=== PATIENT | male | born 1990 | race Caucasian/White ===

== ENCOUNTER 2021-06-04 12:24 | Emergency (ER) | payer MEDICAID, OTHER ==
[~2021-06-04] VITALS: Ht 190.5 cm; Wt 84.8 kg
[2021-06-04 14:21] VITALS: BP 117/81
[2021-06-04] MEDS ORDERED: LIDOCAINE 1% HCL (LOCAL ANESTH.) INJ 20ML MDV IJ ONE (15:15)
[2021-06-04] MEDS ORDERED: TETANUS-DIPTH-ACEL PERTUSSIS 0.5ML SYR Tdap IM ONE (15:30)
[2021-06-04] MEDS ORDERED: cefTRIAXone 1GM/50ML D5W 50 ML IV ONE ×2 (15:30→15:45)
[2021-06-04] MEDS ORDERED: CLINDAMYCIN 600MG IV 50 ML IV ONE (15:30)
== END 2021-06-04 16:22 | disposition home or self-care (01) ==
LOC: ER 12:24
DX: S71.112A Laceration without foreign body, left thigh, initial encounter (principal); S61.511A Laceration without foreign body of right wrist, initial encounter; L03.113 Cellulitis of right upper limb; Z88.0 Allergy status to penicillin; W54.0XXA Bitten by dog, initial encounter; Y93.89 Activity, other specified; Y92.89 Other specified places as the place of occurrence of the external cause; Y99.8 Other external cause status
CPT/HCPCS: 12002; 96374; 99283; J0696; J2001; 90715

== ENCOUNTER 2021-06-05 14:25 | Emergency (ER) | payer MEDICAID ==
[~2021-06-05] VITALS: Ht 190.5 cm; Wt 84.8 kg
[2021-06-05] MEDS ORDERED: cefTRIAXone 1GM/50ML D5W 50 ML IV ONE (15:36)
[2021-06-05] MEDS ORDERED: CLINDAMYCIN 900MG IV 50 ML IV ONE (15:45)
[2021-06-05] MEDS ORDERED: KETOROLAC TROMETH 30 MG/ML 1ML VIAL IV ONE (15:45)
[2021-06-05] MEDS ORDERED: cefTRIAXone SOD 1,000 MG VL IM ONE (15:45)
[2021-06-05 16:08] VITALS: BP 110/73
== END 2021-06-05 16:34 | disposition home or self-care (01) ==
LOC: ER 14:25
DX: L03.113 Cellulitis of right upper limb (principal); Z48.01 Encounter for change or removal of surgical wound dressing; Z88.0 Allergy status to penicillin
CPT/HCPCS: 96365; 96372; 96375; 99284; J0696; J1885

== ENCOUNTER 2021-06-09 08:17 | Emergency (ER) | payer MEDICAID ==
[~2021-06-09] VITALS: Ht 190.5 cm; Wt 84.8 kg
[2021-06-09] MEDS ORDERED: traMADol HCL 50 MG TAB PO ONE (09:00)
[2021-06-09 10:30] VITALS: BP 125/75
== END 2021-06-09 10:28 | disposition home or self-care (01) ==
LOC: ER 08:17
DX: S52.511A Displaced fracture of right radial styloid process, initial encounter for closed fracture (principal); L03.113 Cellulitis of right upper limb; Z88.0 Allergy status to penicillin; W54.0XXA Bitten by dog, initial encounter; Y93.89 Activity, other specified; Y92.89 Other specified places as the place of occurrence of the external cause; Y99.8 Other external cause status
CPT/HCPCS: 73200

== ENCOUNTER 2021-06-10 06:57 | Emergency (ER) | payer MEDICAID ==
[~2021-06-10] VITALS: Ht 190.5 cm; Wt 84.8 kg
[2021-06-10 07:31] VITALS: BP 117/66
== END 2021-06-10 07:47 | disposition home or self-care (01) ==
LOC: ER 06:57
DX: H00.011 Hordeolum externum right upper eyelid (principal); Z88.0 Allergy status to penicillin

== ENCOUNTER 2022-02-16 09:37 | Inpatient (IN) | payer MEDICAID ==
[~2022-02-16] VITALS: Ht 190.5 cm; Wt 86.9 kg
[2022-02-16] MEDS ORDERED: SODIUM CHLORIDE 0.9% 2,000 ML IV ONE (10:15)
[2022-02-16 10:23] LABS: Basophils # (auto) 0.1 10 ^3/uL (0-0.2); Basophils % (auto) 0.6 % (0.0-2.0); Eosinophils # (auto) 0.1 10 ^3/uL (0-0.8); Eosinophils % (auto) 1.1 % (0.0-7.0); Hematocrit 43.8 % (41.0-53.0); Hemoglobin 15.4 g/dL (13.5-17.5); Lymphocytes # (auto) 1.7 10 ^3/uL (0.4-5.4); Lymphocytes % (auto) 17.1 % (10.0-50.0); Mean Corpuscular Hemoglobin 31.8 pg (28.0-32.0); Mean Corpuscular Hgb Conc. 35.2 g/dL (32.0-36.0); Mean Corpuscular Volume 90.3 fL (80.0-100.0); Monocytes # (auto) 0.9 10 ^3/uL (0-1.3); Monocytes % (auto) 9.3 % (0.0-12.0); Neutrophils # (auto) 7.2 10 ^3/uL (1.6-8.6); Neutrophils % (auto) 71.9 % (37.0-80.0); Nucleated Red Blood Cells % 0.1 %; Red Blood Cells 4.85 10^6/uL (4.5-5.90)
[2022-02-16] MEDS ORDERED: CLINDAMYCIN 600MG IV 50 ML IV ONE (10:30)
[2022-02-16] MEDS ORDERED: levoFLOXacin 500MG 100 ML IV ONE (10:30)
[2022-02-16 10:36] LABS: Albumin 3.6 g/dL (3.4-5.0); BUN/Creatinine Ratio 9.6; Calcium 8.8 mg/dL (8.5-10.1)
[2022-02-16 10:44] LABS: Bilirubin, Total 0.5 mg/dL (0.2-1.0); Total Protein 7.6 g/dL (6.4-8.2)
[2022-02-16 10:48] LABS: Potassium 6.8 mmol/L (3.5-5.1)
[2022-02-16 11:37] LABS: Albumin 2.9 g/dL (3.4-5.0); Calcium 7.8 mg/dL (8.5-10.1); Potassium 3.9 mmol/L (3.5-5.1)
[2022-02-16 11:40] LABS: BUN/Creatinine Ratio 13.3; Bilirubin, Total 0.4 mg/dL (0.2-1.0); Total Protein 5.9 g/dL (6.4-8.2)
[2022-02-16] MEDS ORDERED: ONDANSETRON HCL 4 MG/2 ML VIAL IV ONE ×2 (12:30→15:00)
[2022-02-16] MEDS ORDERED: MORPHINE SULFATE 4 MG/ML SYR/VIAL IV ONE ×2 (12:30→15:00)
[2022-02-16 13:59] LABS: Alcohol, Urine < 3.0 mg/dL (0-10); Amphetamine Screen, Urine NEGATIVE (NEGATIVE); Barbiturate Scree,Urine NEGATIVE (NEGATIVE); Benzodiazephine Screen, Urine NEGATIVE (NEGATIVE); Cannabinoid Screen, Urine POSITIVE (NEGATIVE); Cocaine Screen, Urine NEGATIVE (NEGATIVE); Opiate Scree,Urine NEGATIVE (NEGATIVE); Phencyclidine Screen, Urine NEGATIVE (NEGATIVE)
[2022-02-16 15:10] LABS: Urine Bacteria NONE SEEN /hpf (None Seen); Urine Blood Negative /uL (Negative); Urine Specific Gravity 1.009 (1.001-1.035); Urine WBC <1 /hpf (0 - 3)
[2022-02-16] MEDS ORDERED: ONDANSETRON HCL 4 MG/2 ML VIAL IV PRN (20:00)
[2022-02-16 20:55] LABS: Potassium 3.6 mmol/L (3.5-5.1)
[2022-02-16 20:57] LABS: Magnesium 2.3 mg/dL (1.6-2.6)
[2022-02-16] MEDS: SODIUM CHLORIDE 0.9% 3,000 ML IV SCH (21:38)
[2022-02-16] MEDS ORDERED: SODIUM CHLORIDE 0.9% 1,000 ML IV ONE (21:45)
[2022-02-16] MEDS: MORPHINE SULFATE INJECTION 2 MG/ML SYRG IV PRN (21:46)
[2022-02-16] MEDS: CLINDAMYCIN 600MG IV 50 ML IV SCH (22:49)
[2022-02-17] VITALS (7 sets, daily range): BP systolic 108–118; BP diastolic 51–69
[2022-02-17] MEDS: CLINDAMYCIN 600MG IV 50 ML IV SCH ×3 (06:00→22:06)
[2022-02-17 06:28] LABS: Basophils # (auto) 0.1 10 ^3/uL (0-0.2); Basophils % (auto) 0.7 % (0.0-2.0); Eosinophils # (auto) 0.1 10 ^3/uL (0-0.8); Eosinophils % (auto) 1.5 % (0.0-7.0); Hematocrit 39.4 % (41.0-53.0); Hemoglobin 13.8 g/dL (13.5-17.5); Lymphocytes # (auto) 2.2 10 ^3/uL (0.4-5.4); Lymphocytes % (auto) 22.6 % (10.0-50.0); Mean Corpuscular Hemoglobin 31.4 pg (28.0-32.0); Mean Corpuscular Hgb Conc. 34.9 g/dL (32.0-36.0); Mean Corpuscular Volume 90.1 fL (80.0-100.0); Monocytes # (auto) 1.2 10 ^3/uL (0-1.3); Monocytes % (auto) 12.4 % (0.0-12.0); Neutrophils % (auto) 62.8 % (37.0-80.0); Red Blood Cells 4.38 10^6/uL (4.5-5.90); Red Cell Distribution Width 12.9 % (11.8-14.3); White Blood Cell 9.6 10^3/uL (4.4-10.8)
[2022-02-17 07:54] LABS: BUN/Creatinine Ratio 10.8; Bilirubin, Total 0.6 mg/dL (0.2-1.0); Calcium 8.5 mg/dL (8.5-10.1); Potassium 3.9 mmol/L (3.5-5.1); Total Protein 6.3 g/dL (6.4-8.2)
[2022-02-17 07:55] LABS: Albumin 3.2 g/dL (3.4-5.0)
[2022-02-17] MEDS: ENOXAPARIN SOD 40 MG/0.4 ML SYRINGE SC SCH (09:24)
[2022-02-17] MEDS ORDERED: VANCOMYCIN 1GM/250ML 250 ML IV ONE (12:15)
[2022-02-17] MEDS ORDERED: ACETAMINOPHEN 325 MG TAB PO PRN (12:15)
[2022-02-17] MEDS ORDERED: VANCOMYCIN PER PHARMACY 0 MG IV SCH (12:45)
[2022-02-17] MEDS: VANCOMYCIN 1GM/250ML 250 ML IV SCH (15:35)
[2022-02-17] MEDS: SODIUM CHLORIDE 0.9% 3,000 ML IV SCH (20:00)
[2022-02-17] MEDS: MORPHINE SULFATE INJECTION 2 MG/ML SYRG IV PRN (22:32)
[2022-02-18] MEDS: VANCOMYCIN 1GM/250ML 250 ML IV SCH ×2 (03:17→15:59)
[2022-02-18 05:00] VITALS: BP 103/62
[2022-02-18] MEDS: CLINDAMYCIN 600MG IV 50 ML IV SCH ×3 (05:30→22:05)
[2022-02-18 06:47] LABS: Potassium 3.7 mmol/L (3.5-5.1)
[2022-02-18 06:54] LABS: BUN/Creatinine Ratio 11.5; Calcium 8.8 mg/dL (8.5-10.1)
[2022-02-18] MEDS: ENOXAPARIN SOD 40 MG/0.4 ML SYRINGE SC SCH (08:56)
[2022-02-18 09:00] VITALS: BP 115/70
[2022-02-18] MEDS ORDERED: VANCOMYCIN 1GM/250ML 250 ML IV SCH (10:00)
[2022-02-18 13:18] VITALS: BP 110/65
[2022-02-18 17:00] VITALS: BP 113/72
[2022-02-18] MEDS: SODIUM CHLORIDE 0.9% 3,000 ML IV SCH (20:54)
[2022-02-18 22:00] VITALS: BP 106/57
[2022-02-19] MEDS: VANCOMYCIN 1GM/250ML 250 ML IV SCH ×3 (03:00→23:00)
[2022-02-19 05:00] VITALS: BP 114/69
[2022-02-19] MEDS: CLINDAMYCIN 600MG IV 50 ML IV SCH ×3 (06:16→21:52)
[2022-02-19 09:06] VITALS: BP 102/62
[2022-02-19] MEDS: ENOXAPARIN SOD 40 MG/0.4 ML SYRINGE SC SCH (10:30)
[2022-02-19 13:00] VITALS: BP 120/69
[2022-02-19 15:03] VITALS: BP 103/62
[2022-02-19 17:00] VITALS: BP 98/68
[2022-02-19] MEDS: SODIUM CHLORIDE 0.9% 3,000 ML IV SCH (20:00)
[2022-02-19 22:00] VITALS: BP 109/58
[2022-02-20 05:00] VITALS: BP 101/53
[2022-02-20] MEDS: CLINDAMYCIN 600MG IV 50 ML IV SCH (05:17)
[2022-02-20] MEDS: VANCOMYCIN 1GM/250ML 250 ML IV SCH (06:38)
[2022-02-20 09:00] VITALS: BP 109/71
[2022-02-20] MEDS ORDERED: CLIN300C8 PO (09:43)
[2022-02-20] MEDS ORDERED: DOX100PBAE IV (09:43)
== END 2022-02-20 10:53 | disposition home or self-care (01) | DRG 383 ==
LOC: ER 09:37 → OVERFLOW 19:56 → EAST 21:58
PROVIDERS: ADMIT Registered Nurse; ATTEND Family Medicine
DX: L03.113 Cellulitis of right upper limb (principal); E88.09 Other disorders of plasma-protein metabolism, not elsewhere classified; F12.10 Cannabis abuse, uncomplicated; Z80.3 Family history of malignant neoplasm of breast; Z80.8 Family history of malignant neoplasm of other organs or systems; Z71.51 Drug abuse counseling and surveillance of drug abuser; Z88.0 Allergy status to penicillin
CPT/HCPCS: 36415; 73200; 73218; 80048; 80053; 80202; 80307; 81001; 82565; 83605; 83735; 84132; 85025; 87040; 96365; 96366; 96368; 96375; G0378; J1956; J2405; J3490